=== PATIENT | male | born 1995 | race Caucasian/White ===

== ENCOUNTER → 2020-11-25 07:55 | Outpatient (CLI) | payer OTHER, SELFPAY ==
--- NOTE | 2020-11-25 | DI.MRI.S_ITS ---
PROCEDURE: MR WRIST LT W CON INDICATIONS: Displaced fracture of proximal third of navicular TECHNIQUE: After the administration of 3-4 mL of dilute intra-articular Gadolinium contrast into the radiocarpal compartment, coronal T1 spin echo with fat saturation and T2 fast spin echo with fat saturation, axial T1 spin echo and T2 fast spin echo with fat saturation, sagittal T1 spin echo with and without fat saturation through the wrist. COMPARISON: Outside Film, CT, CT WRIST LEFT WITH/WITHOUT CONTRAST, 11/10/2020, 13:15. FINDINGS: Image quality: Excellent. Bones and cartilage: Redemonstrated scaphoid waist fracture is again noted in unchanged alignment. There is mild marrow edema present within the proximal and distal poles of the scaphoid. No definite articular surface collapse is seen. Scattered degenerative subchondral sclerosis and spurring. Carpal ligaments: The scapholunate and lunotriquetral ligaments appear intact, without gadolinium extravasation into the mid-carpal compartment. The radioscaphocapitate and radiolunotriquetral ligaments appear intact. The arcuate ligament and short radiolunate ligament also appear normal. The dorsal intercarpal and radiotriquetral ligaments appear intact. On sagittal images, the pisohamate ligament appears intact. Triangular fibrocartilage complex: The triangular fibrocartilage disc, with its styloid and foveal lamina, appears intact. No gadolinium extravasation into the distal radioulnar joint. The adjacent meniscal homolog appears normal. The ulnar collateral ligament appears intact. The extensor carpi ulnaris tendon is normal in location and morphology. Tendons and soft tissues: The carpal tunnel structures appear normal, including the median nerve. The ulnar nerve appears normal within Guyon's canal. All six extensor tendon compartments demonstrate normal morphology, without pathologic tendon sheath fluid. No soft tissue ganglion cysts. IMPRESSION: Intact appearance of the scapholunate ligament, without leakage of injected contrast material into the midcarpal compartment. Intact appearance of the TFCC. No chondral defects identified. Redemonstrated scaphoid waist fracture. No bridging ossification. Mild marrow edema in the proximal and distal poles. No articular surface collapse seen at this time. Dictated by: Shahbaz Pereira M.D. on 11/25/2020 at 10:29 Approved by: Shahbaz Pereira M.D. on 11/25/2020 at 10:34
--- NOTE | 2020-11-25 | DI.RAD.S_ITS ---
PROCEDURE: FL WRIST INJECTION MR/CT LT INDICATIONS: DISPLACED FX OF PROXINAL THIRD OF NAVICULAR COMPARISON: None. TECHNIQUE: After informed consent had been obtained, the wrist was examined fluoroscopically, and a site chosen for injection of the radiocarpal compartment from a dorsal approach. Skin was prepped and draped in a sterile fashion and 1% lidocaine infiltrated from the skin down to the articular surface. A hypodermic needle was then introduced into the articular space and a modest amount of contrast medium was instilled confirming intra-articular needle tip placement. This was followed by approximately 4 mL of a dilute gadolinium solution. Needle was removed and dressing was applied. The patient experienced no complications throughout the procedure and left the fluoroscopic suite in no apparent distress. FINDINGS: A single fluoroscopic spot image demonstrates intra-articular location to injected iodinated contrast. IMPRESSION: Successful fluoroscopic-guided administration of dilute Gadolinium solution for wrist MR arthrogram. Dictated by: Shahbaz Pereira M.D. on 11/25/2020 at 13:45 Approved by: Shahbaz Pereira M.D. on 11/25/2020 at 13:46
== END ==
PROVIDERS: Referring Provider Orthopaedic Surgery; Visit Provider Orthopaedic Surgery
DX: S62.032K Displaced fracture of proximal third of navicular [scaphoid] bone of left wrist, subsequent encounter for fracture with nonunion (principal); X58.XXXD Exposure to other specified factors, subsequent encounter
CPT/HCPCS: 20605; 73222; 76000